=== PATIENT | female | born 1965 | race Two or more races ===

== ENCOUNTER 2017-10-14 11:14 | Outpatient (CLI) | payer OTHER | END 2017-10-14 12:15 | disposition home or self-care (01) | LOC: RAD 501 11:14 | DX: M32.19 Other organ or system involvement in systemic lupus erythematosus (principal); M54.5 Low back pain; M54.6 Pain in thoracic spine; M46.1 Sacroiliitis, not elsewhere classified ==

== ENCOUNTER 2018-06-02 08:19 | Outpatient (CLI) | payer OTHER | END 2018-06-02 17:00 | disposition home or self-care (01) | LOC: MAMO-SONO 08:19 | DX: R05 Cough (principal); N60.21 Fibroadenosis of right breast; N60.22 Fibroadenosis of left breast; N95.1 Menopausal and female climacteric states ==

== ENCOUNTER → 2018-06-15 | Outpatient (CLI) | payer OTHER | END | disposition home or self-care (01) | LOC: NUCLEAR 11:00 | DX: M81.0 Age-related osteoporosis without current pathological fracture (principal) ==

== ENCOUNTER 2021-08-08 12:42 | Outpatient (CLI) | payer OTHER | END 2021-08-08 12:49 | disposition home or self-care (01) | LOC: LAB 12:42 | DX: Z20.828 Contact with and (suspected) exposure to other viral communicable diseases (principal) ==

== ENCOUNTER → 2021-10-05 | Outpatient (CLI) | payer OTHER | END | disposition home or self-care (01) | LOC: RAD 16:12 | PROVIDERS: ATTEND Internal Medicine Rheumatology | DX: R05.9 Cough, unspecified (principal); M32.19 Other organ or system involvement in systemic lupus erythematosus ==

== ENCOUNTER 2023-01-03 09:55 | Outpatient (CLI) | payer OTHER | END 2023-01-03 10:12 | disposition home or self-care (01) | LOC: RAD 09:55 | DX: M67.911 Unspecified disorder of synovium and tendon, right shoulder (principal) ==